=== PATIENT | male | born 1980 | race Caucasian/White ===

== ENCOUNTER 2022-02-15 17:00 | Emergency (ER) | payer SELFPAY ==
[~2022-02-15] VITALS: Ht 172.7 cm; Wt 70.3 kg
== END 2022-02-16 03:47 | disposition home or self-care (01) ==
LOC: ED 17:00
DX: S01.81XA Laceration without foreign body of other part of head, initial encounter (principal); W19.XXXA Unspecified fall, initial encounter
CPT/HCPCS: 12011; 36415; 70450; 80053; 81001; 85025; 99284-25; G0480; J7030